=== PATIENT | male | born 1980 | race Two or more races ===

== ENCOUNTER 2024-12-27 19:36 | Emergency (ER) | payer MEDICAID, OTHER ==
[~2024-12-27] VITALS: Ht 182.9 cm; Wt 108.6 kg
--- NOTE | 2024-12-27 19:57 | ED.PDOC ---
GI ASSESSMENT HPI Comments This patient is a morbidly obese 44 year-old male, with a Hx of umbilical hernia for x1 year, presents to the ED with a chief complaint of concerns of incarcerated hernia with associated abdominal pain as of x1 week ago. Patient reports pushing the hernia back in over the past year, when necessary. Patient reports abdominal pain is a 7/10, exacerbated with movement, with no known associated relieving factors. Patient has no further complaints at this time and otherwise denies N/V/D, fever, chills, constipation, or dysuria. Patients vitals are stable at this time. Chief Complaint: Abdominal Pain Time Seen by MD: 19:43 Reviewed Notes: Nurses Notes, Medications, Allergies Information Source: Patient Mode of Arrival: Ambulatory Timing: Days Duration: Since onset Prehospital treatment: None Quality: Aching, Cramping, Sharp Vomitus: None Severity: Moderate Recent Hx of: None Pain Location: Other (umbilical ) Associated sign and symptoms: Abdominal Pain, Other (Umbilical hernia) Past Medical History PAST MEDICAL HISTORY: Denies Surgical History: Denies all surgeries Family History Family History: Reviewed,noncontributory to illness, No family hx of Cancer, No family hx of DM, No family hx of Heart tameka, No family hx of HTN, No family hx ofKidney tameka, No family hx of Liver tameka, No family hx of Lung tameka, No family hx of Stroke Social History Smoker: Non-Smoker Alcohol: Occasionally Drugs: Denies Drug Use Lives In: Home Constitutional: denies: chills, diaphoresis, fatigue, fever, malaise, sweats, weakness, others EENTM: denies: blurred vision, double vision, ear bleeding, ear discharge, ear drainage, ear pain, ear ringing, eye pain, eye redness, hearing loss, mouth pain, mouth swelling, nasal discharge, nose bleeding, nose congestion, nose pain, photophobia, tearing, throat pain, throat swelling, voice changes, others Respiratory: denies: cough, hemoptysis, orthopnea, SOB at rest, shortness of breath, SOB with excertion, stridor, wheezing, others Cardiovascular: denies: chest pain, dizzy spells, diaphoresis, Dyspnea on exertion, edema, irregular heart beat, left arm pain, lightheadedness, palpitations, PND, syncope, others Gastrointestinal: reports: abdominal pain, nausea; denies: abdomen distended, blood streaked bowels, constipated, diarrhea, dysphagia, difficulty swallowing, hematemesis, melena, poor appetite, poor fluid intake, rectal bleeding, rectal pain, vomiting, others Genitourinary: denies: burning, dysuria, flank pain, frequency, hematuria, incontinence, penile discharge, penile sore, pain, testicle pain, testicle swelling, urgency, others Neurological: denies: dizziness, fainting, headache, left sided numbness, left sided weakness, numbness, paresthesia, pre-existing deficit, right sided numbness, right sided weakness, seizure, speech problems, tingling, tremors, weakness, others Musculoskeletal: denies: back pain, gout, joint pain, joint swelling, muscle pain, muscle stiffness, neck pain, others Integumetry: denies: bruises, change in color, change in hair/nails, dryness, laceration, lesions, lumps, rash, wounds, others Allergic/Immunocompromised: denies: Difficulty Healing, Frequent Infections, Hives, Itching, others Hematologic/Lymphatic: denies: anemia, blood clots, easy bleeding, easy b ruising, swollen glands, others Endocrine: denies: excessive hunger, excessive sweating, excessive thirst, excessive urination, flushing, intolerance to cold, intolerance to heat, unexplained weight gain, unexplained weight loss, others Psychiatric: denies: anxiety, bipolar disorder, depression, hopeless, panic disorder, schizophrenia, sleepless, suicidal, others All Other Systems: Reviewed and Negative Physical Exam General Appearance: Moderate Distress (Due to abdominal and specifically, umbilical discomfort.), Obese HEENT: Normal ENT Inspection, Pharynx Normal, TMs Normal Neck: Full Range of Motion, Non-Tender, Normal, Normal Inspection Respiratory: Chest Non-Tender, Lungs Clear, No Accessory Muscle Use, No Respiratory Distress, Normal Breath Sounds Cardiovascular: No Edema, No JVD, No Murmur, No Gallop, Normal Peripheral Pulses, Regular Rate/Rhythm Breast Exam: Deferred Gastrointestinal: Other (Patient displays a moderate sized umbilical hernia. No ecchymosis appreciated or erythema. Hernia appears to be mostly reducible. Difficult to assess due to body habitus.) Genitalia: Deferred Pelvic: Deferred Rectal: Deferred Extremities: No calf tenderness, Normal capillary refill, Normal inspection, Normal range of motion, Non-tender, No pedal edema Neurologic: Alert Cerebellar Function: NOT DONE Reflexes: NOT DONE Skin: Dry, Normal Color, Warm Lymphatic: No Adenopathy Was a procedure done? Was a procedure done?: No GI differential Dx Differential Diagnosis: Other (Umbilical hernia, strangulated hernia, incarcerated hernia) X-Ray, Labs, Meds, VS Vital Signs Date Time Temp Pulse Resp B/P (MAP) Pulse Ox O2 Delivery O2 Flow Rate FiO2 12/27/24 21:19 98.0 53 17 137/80 (99) 99 98.0 12/27/24 19:46 97.9 62 18 144/92 95 97.9 Current Medications Medications (Trade) Dose Ordered Sig/Ani Route Start Time Stop Time Status Last Admin Acetaminophen/ Hydrocodone Bitart ([place] 10/325MG Tab) 1 tab ONCE ONCE PO 12/27/24 20:00 12/27/24 20:01 DC 12/27/24 21:26 [place] [id number] Ph: [phone] DIAGNOSTIC IMAGING Diagnostic Imaging Report : [id number] Signed PATIENT: ETHEL PEREYRA ACCT: [id number] UNIT: [id number] : 1980 LOC: ER ROOM / BED: / AGE / SEX: 44 / M ADM STATUS: REG ER SERVICE 47 ORDERING PHYSICIAN: AB YAO PAC PROCEDURE(s): ABDL - ABDOMEN LIMITED REASON: Rule out incarcerated/strangulated umbilical hernia ORDER NUMBER(s): [id number], ACCESSION NUMBER(s): [id number] ULTRASOUND ABDOMEN, LIMITED: REASON FOR EXAM: Evaluate umbilical hernia TECHNIQUE: Real-time sector scans in the transverse and longitudinal planes were obtained through the right upper quadrant of the abdomen. FINDINGS: There is an approximately 1.0 cm fascial defect at the umbilicus. Abdominal fat herniates through the umbilical fascial defect into the subcutaneous fat. There is some vascularity noted within the herniated fat on color Doppler imaging. No definite free fluid is identified within the hernia. IMPRESSION: Fat containing umbilical hernia. No free fluid identified. X-Ray, Labs, Meds, VS Comment All studies performed the ED were evaluated by me personally. Ultrasound of the umbilicus revealed a umbilical hernia without incarceration or strangulation. Advised patient he will need to follow up with the primary care provider for discussions related to surgical intervention of his hernia concerns Images Reviewed?: Images reviewed and evaluated by me Time of 1ST Reevaluation: 22:31 Reevaluation 1ST: Improved Consultation: PCP Patient Education/Counseling: Diagnosis, Treatment Family Education/Counseling: Diagnosis, Treatment, No Family Present SEPSIS Sepsis Screen Recent Procedure: No On Antibiotic Therapy: No Respiratory Rate >20: No Heart Rate >90: No Temp<36 C (96.8 F) or >38.3 C: No SBP <90 or MAP <65 mmHG: No New Acute Mental Status Change: No Is the patient on CPAP, BIPAP,: No Physician Orders Abdomen Limited (12/27/24 19:48) Vital Signs Date Time Temp Pulse Resp B/P (MAP) Pulse Ox O2 Delivery O2 Flow Rate FiO2 12/27/24 21:19 98.0 53 17 137/80 (99) 99 98.0 12/27/24 19:46 97.9 62 18 144/92 95 97.9 Medications Medications Dose Ordered Sig/Ani Route Start Time Stop Time Status Last Admin Dose Admin Acetaminophen/ Hydrocodone Bitart 1 tab ONCE ONCE PO 12/27/24 20:00 12/27/24 20:01 DC 12/27/24 21:26 Departure 1 Departure Time of Disposition: 22:31 Impression: Primary Impression: Umbilical hernia Disposition: 01 HOME / SELF CARE / HOMELESS Condition: Stable Additional Instructions: Advised pain medication as needed and additionally, patient will need to follow up with his primary care provider for surgical referral to address his umbilical hernia concerns. e-Prescriptions Acetaminophen (Acetaminophen) 500 Mg Tab 500 MG PO Q4HP PRN, #30 TAB Prov: AB YAO PAC 12/27/24 Ibuprofen Micronized (Ibuprofen) 800 Mg Tab 800 MG PO Q8HP PRN, #20 TAB Prov: AB YAO PAC 12/27/24 Discharged With: Self, Friend Critical Care Note Critical Care Time?: No Stability Stability form required: No Heart Score Heart Score: Heart Score Response (Comments) Value History N/A 0 EKG N/A 0 Age N/A 0 Risk Factors N/A 0 Troponin N/A 0 Total 0 I personally scribed for AB YAO PAC ([email or web address]) on 12/27/24 at 19:57. Electronically submitted by Leelee Andrews ([email or web address]). I personally scribed for AB YAO PAC ([email or web address]) on 12/27/24 at 21:24. Electronically submitted by Leelee Andrews ([email or web address]). AB YAO PAC Dec 27, 2024 19:57
--- NOTE | 2024-12-27 20:31 | DVH ---
ULTRASOUND ABDOMEN, LIMITED: REASON FOR EXAM: Evaluate umbilical hernia TECHNIQUE: Real-time sector scans in the transverse and longitudinal planes were obtained through th e right upper quadrant of the abdomen. FINDINGS: There is an approximately 1.0 cm fascial defect at the umbilicus. Abdominal fat herniates through the umbilical fascial defect into the subcutaneous fat. There is some vascularity noted with in the herniated fat on color Doppler imaging. No definite free fluid is identified within the hernia . IMPRESSION: Fat containing umbilical hernia. No free fluid identified.
[2024-12-27 21:19] VITALS: BP 137/80; PULSE 53; RESP 17; TEMP 98; O2SAT 99
[2024-12-27] MEDS: HYDROcodone-ACET 10/325MG TAB PO ONE (21:26)
[2024-12-27] MEDS ORDERED: IBUP-1455 PO (22:32)
[2024-12-27] MEDS ORDERED: ACET500T58 PO (22:33)
== END 2024-12-28 01:27 | disposition home or self-care (01) ==
LOC: ER 19:36
DX: K42.9 Umbilical hernia without obstruction or gangrene (principal); R11.0 Nausea
CPT/HCPCS: 76705